=== PATIENT | female | born 2000 | race Caucasian/White ===

== ENCOUNTER 2022-10-26 16:48 | Outpatient (CLI) | payer MEDICAID ==
[2022-10-26] VITALS (9 sets, daily range): BP systolic 116–125; BP diastolic 61–80
[2022-10-26 17:20] LABS: CLARITY,URINE CLOUDY; COLOR,URINE ORANGE; GLUCOSE, URINE (UA) NEGATIVE (NEGATIVE); KETONES,URINE 1+ (NEGATIVE); LEUKOCYTE ESTERASE ,URINE TRACE (NEGATIVE); NITRITE,URINE NEGATIVE (NEGATIVE); PROTEIN,URINE 1+ (NEGATIVE)
[2022-10-26 17:37] LABS: BACTERIA,URINE LARGE /HPF; BILIRUBIN,URINE 1+ (NEGATIVE)
[2022-10-26] MEDS ORDERED: PREN1TAB19 PO (17:40)
[2022-10-26] MEDS ORDERED: LACTATED RINGERS 1,000 ML IV SCH (18:15)
[2022-10-26] MEDS ORDERED: CEPHALEXIN 250 MG (KEFLEX) CAP PO ONE (18:30)
[2022-10-26] MEDS ORDERED: CEPH500T PO (19:04)
== END 2022-10-26 19:15 | disposition home or self-care (01) ==
LOC: LDRP 16:48 → WSo 16:48
PROVIDERS: ATTEND Family Medicine
DX: O47.9 False labor, unspecified (principal); Z3A.00 Weeks of gestation of pregnancy not specified
CPT/HCPCS: 81000; 87088; 87210; G0463; 99214

== ENCOUNTER 2022-11-03 10:08 | Outpatient (CLI) | payer MEDICAID ==
[~2022-11-03] VITALS: Ht 165.1 cm; Wt 113.2 kg
[~2022-11-03 10:08] MED LIST: CEPH500T PO; PREN1TAB19 PO
[2022-11-03 10:43] LABS: BILIRUBIN,URINE NEGATIVE (NEGATIVE); CLARITY,URINE CLEAR; COLOR,URINE YELLOW; GLUCOSE, URINE (UA) NEGATIVE (NEGATIVE); KETONES,URINE NEGATIVE (NEGATIVE); LEUKOCYTE ESTERASE ,URINE NEGATIVE (NEGATIVE); NITRITE,URINE NEGATIVE (NEGATIVE); PROTEIN,URINE NEGATIVE (NEGATIVE)
[2022-11-03 10:53] LABS: BACTERIA,URINE TRACE /HPF; SQUAMOUS EPITHELIAL CELL,UR 0-2 /HPF
[2022-11-03 11:15] VITALS: BP 136/82
[2022-11-03 12:40] VITALS: BP 136/66
[2022-11-03] MEDS ORDERED: D5 LR IV SOLUTION 1,000 ML IV ONE (12:44)
[2022-11-03 13:39] LABS: BASOPHILS % (AUTO) 0 % (0-10); EOSINOPHILS % (AUTO) 0 % (0-10); HEMATOCRIT 30 % (35-52); HEMOGLOBIN 9.9 g/dL (11.5-16.0); LYMPHOCYTES # (AUTO) 1.9 10^3/uL (1.0-4.0); LYMPHOCYTES % (AUTO) 16 % (12-44); MEAN CORPUSCULAR HEMOGLOBIN 26 pg (25-34); MEAN CORPUSCULAR HGB CONC 33 g/dL (32-36); MEAN CORPUSCULAR VOLUME 80 fL (80-99); MEAN PLATELET VOLUME 11.3 fL (9.0-12.2); MONOCYTES # (AUTO) 0.6 10^3/uL (0.0-1.0); MONOCYTES % (AUTO) 5 % (0-12); NEUTROPHILS # (AUTO) 9.1 10^3/uL (1.8-7.8); NEUTROPHILS % (AUTO) 78 % (42-75); PLATELET COUNT 279 10^3/uL (130-400); WHITE BLOOD COUNT 11.6 10^3/uL (4.3-11.0)
--- NOTE | 2022-11-05 08:21 | Physician Query-Final Dx ---
Clinic Account Progress/Dx Physician Query: Please give diagnosis Please include # weeks gestation Date of Service Nov 03, 2022 at 10:08 ASHISH,AprNov 05, 2022 08:21
== END 2022-11-03 15:05 | disposition home or self-care (01) ==
LOC: WSo 10:08 → LDRP 10:08 → WSo 15:05
PROVIDERS: ATTEND Family Medicine
DX: Z34.90 Encounter for supervision of normal pregnancy, unspecified, unspecified trimester (principal); Z3A.00 Weeks of gestation of pregnancy not specified
CPT/HCPCS: 36415; 81000; 85025; 86850; 86900; 86901; 96360; 96361; 99213

== ENCOUNTER 2022-11-13 05:40 | Outpatient (CLI) | payer MEDICAID ==
[~2022-11-13] VITALS: Ht 165.1 cm; Wt 113.6 kg
[2022-11-17] MEDS ORDERED: IBUP-844 PO (08:33)
[2022-11-17] MEDS ORDERED: ACHD5005 PO (08:33)
== END 2022-11-13 09:47 ==
LOC: PREOP 05:40
PROVIDERS: ATTEND Obstetrics & Gynecology
DX: Z01.818 Encounter for other preprocedural examination (principal)